=== PATIENT | female | born 1935 | race Caucasian/White ===

== ENCOUNTER → 2018-10-01 | Outpatient (CLI) | payer MEDICARE ==
--- NOTE | 2018-10-02 13:31 | MM ---
Reason for exam: screening (asymptomatic). Last mammogram was performed 1 year ago. History: Patient is postmenopausal. Family history of premenopausal breast cancer in daughter at age 48 and premenopausal breast cancer in sister. Cyst aspiration of the left breast. Took estrogen for 1 year. Physical Findings: A clinical breast exam by your physician is recommended on an annual basis and results should be correlated with mammographic findings. MG 3D Screening Mammo W/Cad Bilateral CC, MLO, and XCCL view(s) were taken. Prior study comparison: September 24, 2017, bilateral MG 3d screening mammo w/cad. June 26, 2012, bilateral digital screening mammo w/CAD. The breast tissue is heterogeneously dense. This may lower the sensitivity of mammography. Benign appearing bilateral calcifications. No suspicious abnormality. No significant changes when compared with prior studies. ASSESSMENT: Benign, BI-RAD 2 RECOMMENDATION: Routine screening mammogram of both breasts in 1 year.
== END ==
LOC: RADMAMWWP 13:15
PROVIDERS: ATTEND Family Medicine
DX: Z12.31 Encounter for screening mammogram for malignant neoplasm of breast (principal)
CPT/HCPCS: 77063; 77067

== ENCOUNTER → 2019-10-17 | Outpatient (CLI) | payer MEDICARE ==
--- NOTE | 2019-10-17 18:29 | BD ---
EXAMINATION TYPE: Axial Bone Density DATE OF EXAM: 10/17/2019 COMPARISON: 09.24.2017 CLINICAL HISTORY: 84 YR OLD FEMALE....ICD-10 CODE: M89.9 DISORDER OF BONE Height: 62.4 Weight: 121 FRAX RISK QUESTIONS: History of Fracture in Adulthood: YES Rheumatoid Arthritis: YES RISK FACTORS HISTORY OF: Hip Fracture RT , 2014...>AGE OF 51 History of Wrist Fracture: LT WRIST....> AGE OF 51, RT WRIST ....> AGE 51 YRS OLD LAST YR Surgery to RT FEMUR, ....>AGE OF 51 Diet low in dairy products/other sources of calcium: YES Postmenopausal woman: YES AT AGE 52 NO HORMONES Hyperparathyroidism: NO Adrenal Insufficiency: NO MEDICATIONS: Additional Medications: REFLUX MEDS, BP MEDS, ASPIRIN, BIOTIN, CALCIUM, VIT D Additional History: HYPERTENSION, EXAM MEASUREMENTS: Bone mineral densitometry was performed using the [employer] System. Bone mineral density as measured about the Lumbar spine is: ----- L1-L4(G/cm2): 1.434 T Score Values are as follows: ----- L1: 0.0 ----- L2: 2.0 ----- L3: 1.5 ----- L4: 4.2 ----- L1-L4: 2.1 Bone mineral density has: Increased 20.2% since study of: 09.24.2017 Bone mineral density about the L hip (g/cm2): 0.734 T Score values are as follows: -----L Neck: -2.5 -----L Total: -2.2 Bone mineral density has: Decreased -6.4% since study of: 09.24.2017 FRAX%s: THERE IS A 30.9% CHANCE FOR A MAJOR OSTEOPOROTIC FX AND A 12.1% FOR HIP.....PROBABILITY FOR FX IN 10 YRS TIME IMPRESSION: Osteoporosis (T Score less than -2.5). There is increased fracture risk and therapy is usually indicated based on age. Re-Screen 1-2 years. NOTE: T-SCORE=SD OF THE YOUNG ADULT MEAN.
--- NOTE | 2019-10-21 13:12 | MM ---
Reason for exam: screening (asymptomatic). Last mammogram was performed 1 year and 1 month ago. History: Patient is postmenopausal. Family history of premenopausal breast cancer in daughter at age 48 and premenopausal breast cancer in sister. Cyst aspiration of the left breast. Took estrogen for 1 year. Physical Findings: A clinical breast exam by your physician is recommended on an annual basis and results should be correlated with mammographic findings. MG 3D Screening Mammo W/Cad Bilateral CC and MLO view(s) were taken. Prior study comparison: October 01, 2018, bilateral MG 3d screening mammo w/cad. September 24, 2017, bilateral MG 3d screening mammo w/cad. The breast tissue is heterogeneously dense. This may lower the sensitivity of mammography. No significant changes when compared with prior studies. ASSESSMENT: Negative, BI-RAD 1 RECOMMENDATION: Routine screening mammogram of both breasts in 1 year.
== END | disposition home or self-care (01) ==
LOC: RADMAMWWP 14:39
PROVIDERS: ATTEND Family Medicine
DX: Z12.31 Encounter for screening mammogram for malignant neoplasm of breast (principal); M81.0 Age-related osteoporosis without current pathological fracture
CPT/HCPCS: 77063; 77067; 77080

== ENCOUNTER → 2023-07-18 | Outpatient (CLI) | payer MEDICARE ==
--- NOTE | 2023-07-18 13:29 | BD ---
EXAMINATION TYPE: Axial Bone Density DATE OF EXAM: 07/18/2023 CLINICAL HISTORY: 87 years old Female. ICD-10 CODE: Z78.0 ASYMPTOMATIC MENOPAUSAL STA Height: 62.25 Weight: 130 FRAX RISK QUESTIONS: Family History (Parent hip fracture): no History of Fracture in Adulthood: yes 2017 rt femur, rt wrist 2019 Secondary Osteoporosis: no RISK FACTORS HISTORY OF: Hip Fracture (Right/Left): yes When: 2017 History of Wrist Fracture: yes bilat When: 2019 Surgery to Spine/Hip(right/left)/Wrist (right/left): yes rt hip, rt wrist When: 2019 Family History of Osteoporosis: no Active: yes Diet low in dairy products/other sources of calcium: no Postmenopausal woman: yes Lost more than 2 inches in height since high school: no Frequent falls: no Poor Health: no MEDICATIONS: Osteoporosis Medications: yes Which medication: Fosamax How Lon+ years Additional Medications: no EXAM MEASUREMENTS: Bone mineral densitometry was performed using the [employer] System. Bone mineral density as measured about the Lumbar spine is: ----- L1-L4(G/cm2): 1.496 T Score Values are as follows: ----- L1: 1.5 ----- L2: 3.3 ----- L3: 2.8 ----- L4: 2.8 ----- L1-L4: 2.6 Z Score Values are as follows: ----- L1: 3.7 ----- L2: 5.4 ----- L3: 5.0 ----- L4: 5.0 ----- L1-L4: 4.8 Bone mineral density has: Increased 4.3 % since study of: 10/17/2019 Bone mineral density about the L hip (g/cm2): 0.774 T Score values are as follows: -----L Neck: -1.7 -----L Total: -1.9 Z Score values are as follows: -----L Neck: 0.9 -----L Total: 0.7 Bone mineral density has: Increased 5.4 % since study of: 10/17/2019 FRAX%s: The graph provided illustrates a 18.8%chance for major osteoporotic fx and a 5.2%chance for t he hips probability for fx in 10 years time IMPRESSION: Osteopenia (T Score between -2.5 and -1). There is slightly increased risk of fracture and the patient may be considered for treatment. Re-Screen 2-5 years. NOTE: T-SCORE=SD OF THE YOUNG ADULT MEAN.
--- NOTE | 2023-07-19 20:39 | MM ---
Reason for Exam: Screening (asymptomatic). Last mammogram was performed 3 year(s) and 9 month(s) ago. Patient History: Menarche at age 13. First Full-Term at age 24. Postmenopausal. Patient used Estrogen for 1 year. Cyst Aspiration on the Left side. Sister had breast cancer. Daughter had breast cancer, age 48. Prior Study Comparison: 09/24/2017 Bilateral Screening Mammogram, [facility]. 10/01/2018 Bilateral Screening Mammogram, [facility]. 10/17/2019 Bilateral Screening Mammogram, [facility]. Tissue Density: There are scattered fibroglandular densities. Findings: Analyzed By CAD. There is no suspicious group of microcalcifications or new suspicious mass in either breast. Overall Assessment: Negative, BI-RAD 1 Management: Screening Mammogram of both breasts in 1 year. . Patient should continue monthly self-breast exams. A clinical breast exam by your physician is recommended on an annual basis. This exam should not preclude additional follow-up of suspicious palpable abnormalities. Note on Paula scores and lifetime risk: 1. A Paula score greater than 3% is considered moderate risk. If this is the case, consider specialist referral to assess eligibility for a risk reducing agent. 2. If overall lifetime risk for the development of breast cancer is 20% or higher, the patient may qualify for future screening with alternating mammogram and breast MRI. Electronically signed and approved by: Pastor Otero M.D. Radiologist
== END | disposition home or self-care (01) ==
LOC: RADBDWWP 12:35
PROVIDERS: ATTEND Family Medicine
DX: Z12.31 Encounter for screening mammogram for malignant neoplasm of breast (principal); M85.852 Other specified disorders of bone density and structure, left thigh; Z78.0 Asymptomatic menopausal state; Z80.3 Family history of malignant neoplasm of breast
CPT/HCPCS: 77063; 77067; 77080